=== PATIENT | female | born 1980 | race Caucasian/White ===

== ENCOUNTER → 2016-08-05 | Outpatient (CLI) | payer OTHER ==
--- NOTE | 2016-08-05 08:46 | RAD ---
Right upper quadrant abdominal ultrasound, 08/05/2016: History: Pain The gallbladder is within normal limits in size. There is no sonographic evidence of cholelithiasis. The gallbladder jean baptiste are not thickened. No bile duct dilatation is seen. The visualized portions of the liver, pancreas and right kidney are unremarkable. IMPRESSION: No significant abnormality is detected.
== END | disposition home or self-care (01) ==
LOC: US 06:44
PROVIDERS: ATTEND Surgery
DX: R10.11 Right upper quadrant pain (principal)
CPT/HCPCS: 76705

== ENCOUNTER → 2017-03-26 | Outpatient (CLI) | payer OTHER ==
[2017-03-26 11:27] LABS: BASO # 0.1 x10^3/uL (0.0-0.2); BASO % 1 % (0-3); EOS % 2 % (0-3); HEMATOCRIT 45.2 % (36.0-47.0); HEMOGLOBIN 14.9 g/dL (12.0-15.5); LYMPH # 2.6 x10^3/uL (1.0-4.8); LYMPH % 25 % (24-48); MEAN CORPUSCULAR HEMOGLOBIN 31 pg (25-35); MEAN CORPUSCULAR HGB CONC 33 g/dL (31-37); MEAN CORPUSCULAR VOLUME 94 fL (79-100); MONO % 6 % (0-9); NEUT % 67 % (31-73); PLATELET COUNT 238 x10^3/uL (140-400); RED BLOOD COUNT 4.78 x10^6/uL (3.50-5.40); RED CELL DISTRIBUTION WIDTH 13.4 % (11.5-14.5); WHITE BLOOD COUNT 10.6 x10^3/uL (4.0-11.0)
[2017-03-26 11:50] LABS: ALBUMIN 4.4 g/dL (3.4-5.0); ALBUMIN/GLOBULIN RATIO 1.3 (1.0-1.7); CALCIUM 8.9 mg/dL (8.5-10.1); CREATININE 0.7 mg/dL (0.6-1.0); GFR 94.7; POTASSIUM 3.8 mmol/L (3.5-5.1); TOTAL BILIRUBIN 0.1 mg/dL (0.2-1.0); TOTAL PROTEIN 7.9 g/dL (6.4-8.2)
== END | disposition home or self-care (01) ==
LOC: LAB 10:56
PROVIDERS: ATTEND Psychiatry & Neurology Neurology
DX: G43.001 Migraine without aura, not intractable, with status migrainosus (principal)
CPT/HCPCS: 36415; 80053; 85025; 85651; 86141

== ENCOUNTER → 2017-03-31 | Outpatient (CLI) | payer OTHER ==
[~2017-03-31] MED LIST: ALPR0.5T6 PO; DULO60CA6 PO; GADOBUTROL 7.5 MMOL/7.5 ML VIAL IV ONE; METH-38 PO; METO25TA4 PO
--- NOTE | 2017-03-31 11:55 | KCIC ---
MRI Brain with and without contrast History: Occipital headache, previous sinus surgery, worsening headaches Technique: Multiplanar, multi sequential pre and postcontrast MR imaging was performed of the brain. Contrast: 6 cc Gadavist Comparison: None Findings: There is no evidence of recent infarct or cytotoxic edema. The ventricles, sulci, and cisterns are within normal limits in size and configuration. There is no significant midline shift, intraaxial mass effect, or focal abnormal extra-axial fluid collection. There is no significant signal abnormality of the brain parenchyma. There is no nodular parenchymal or leptomeningeal enhancement. There is preservation of the major intracranial flow-voids at the skull base. The cerebellar tonsils are normal in location. There is no significant abnormality of the pineal gland or pituitary gland. There have been bilateral nasoantral windows. There is mild mucosal thickening of residual ethmoid air cells and right frontal sinus. The mastoid air cells are aerated. There is preserved marrow signal of the clivus. Impression: 1. There is no significant intracranial abnormality. 2. There have been nasoantral windows bilaterally. There is minimal mucosal thickening of residual ethmoid air cells and right frontal sinus. Electronically signed by: Romie Cerda MD (03/31/2017 11:52 AM) [facility]
== END | disposition home or self-care (01) ==
LOC: KCIC MRI 09:45
PROVIDERS: ATTEND Psychiatry & Neurology Neurology
DX: R51 Headache (principal)
CPT/HCPCS: 70553; A9585

== ENCOUNTER → 2017-10-13 | Outpatient (CLI) | payer OTHER | END | disposition home or self-care (01) | LOC: ECHO 14:20 | DX: R55 Syncope and collapse (principal); R00.2 Palpitations; G43.001 Migraine without aura, not intractable, with status migrainosus | CPT/HCPCS: 93306 ==

== ENCOUNTER 2018-09-21 14:21 | Emergency (ER) | payer OTHER ==
[~2018-09-21] VITALS: Ht 166.4 cm; Wt 78.5 kg
[~2018-09-21 14:21] MED LIST changes: -GADOBUTROL 7.5 MMOL/7.5 ML VIAL IV ONE
[2018-09-21 15:17] VITALS: BP 126/65
[2018-09-21] MEDS ORDERED: ALBUTEROL SULFATE 2.5 MG/3 ML NEBU. NEB ONE (16:00)
[2018-09-21] MEDS ORDERED: ALBU2.5V8 INH (16:53)
--- NOTE | 2018-09-21 16:54 | PHYS DOC ---
Past Medical History Past Medical History: Anxiety, Asthma, Depression, Pneumonia Past Surgical History: Tonsillectomy, Other Additional Past Surgical Histo: Oral and sinus surgeries Alcohol Use: Rarely Drug Use: None Adult General Chief Complaint Chief Complaint: ASTHMA HPI HPI Patient is a 37 year old male who presents to the emergency Department today with complaints of continued shortness of breath for a few weeks. Patient states that after having a severe case of pneumonia in 2017 she was diagnosed with asthma. She saw her primary care doctor last week and was prescribed a new asthma control inhaler, Breo Elliptra. She reports no improvement in her symptoms since starting this medication. She describes the discomfort of breathing is tightness in her chest. She denies feeling wheezing at this time. She denies any fever, nasal congestion, nausea, vomiting, diarrhea, or abdominal pain. Review of Systems Review of Systems Constitutional: Denies fever or chills [] Respiratory: Denies cough; see history of present illness Cardiovascular: No additional information not addressed in HPI [] GI: Denies abdominal pain, nausea, vomiting, or diarrhea [] Musculoskeletal: Denies back pain or joint pain [] Integument: Denies rash or skin lesions [] Neurologic: Denies headache, Current Medications Current Medications Current Medications Medications (Trade) Dose Ordered Sig/Lukasz Start Time Stop Time Status Last Admin Dose Admin Albuterol Sulfate (Ventolin Neb Soln) 2.5 mg 1X ONCE 09/21/18 16:00 09/21/18 16:01 DC 09/21/18 16:07 2.5 MG Allergies Allergies Allergies Coded Allergies Type Severity Reaction Last Updated Verified meperidine Allergy Intermediate 03/31/17 Yes Physical Exam Physical Exam Constitutional: Well developed, well nourished, no acute distress, non-toxic appearance. [] HENT: Normocephalic, atraumatic, bilateral external ears normal, nose normal. [] Eyes: conjunctiva normal, no discharge. [] Neck: Normal range of motion, no stridor. [] Cardiovascular:Heart rate regular rhythm, no murmur [] Lungs & Thorax: Bilateral breath sounds clear to auscultation, diminished in bases bilat [] Skin: Warm, dry, no erythema, no rash. [] Extremities: No cyanosis, no clubbing, no edema. [] Neurologic: Alert and oriented X 3, no focal deficits noted. [] Psychologic: Affect normal, judgement normal, mood normal. [] Current Patient Data Vital Signs Vital Signs Date Time Temp Pulse Resp B/P (MAP) Pulse Ox O2 Delivery O2 Flow Rate FiO2 09/21/18 16:09 98 Room Air 09/21/18 15:17 98.1 98 18 126/65 (85) 98.1 EKG EKG [] Radiology/Procedures Radiology/Procedures []Patient was given albuterol breathing treatment in the emergency department, she reported feeling better after the breathing treatment, lungs sounds are clear in all rodriguez Course & Med Decision Making Course & Med Decision Making Pertinent Labs and Imaging studies reviewed. (See chart for details) dx: Asthma Patient was prescribed a Pro Air inhaler and encouraged to follow up with pulmonology as she has scheduled for next week. Return to the ER symptoms worsen. Patient verbalized an understanding of home care, medications, follow-up, and return to ED instructions and was in agreement with the plan of care. [] Dragon Disclaimer Dragon Disclaimer This electronic medical record was generated, in whole or in part, using a voice recognition dictation system. Departure Departure Impression: Primary Impression: Asthma Disposition: 01 HOME, SELF-CARE Condition: STABLE Referrals: LESLIE DEMPSEY (PCP) Patient Instructions: Asthma, Adult, [id number] Additional Instructions: Fill prescription(s) and use as directed. Avoid airway triggers such as smoke, fragrance, dust, and pollen. Follow-up with pulmonology as scheduled, return to the ER symptoms worsen. Scripts Albuterol Sulfate (PROAIR HFA INHALER) 8.5 Gm Hfa.aer.ad 2 PUFF INH PRN Q6HRS PRN for SHORTNESS OF BREATH for 30 Days, #1 INHALER 0 Refills Prov: JENI LUCAS LUMP RECEIVER 09/21/18 Problem Qualifiers Primary Impression: Asthma Asthma severity: mild Asthma persistence: unspecified Asthma complication type: unspecified Qualified Codes: J45.909 - Unspecified asthma, uncomplicated JENI LUCAS LUMP RECEIVER Sep 21, 2018 16:54
== END 2018-09-21 17:15 | disposition home or self-care (01) ==
LOC: ER 14:21
DX: J45.909 Unspecified asthma, uncomplicated (principal); R07.89 Other chest pain; Z90.89 Acquired absence of other organs; Z88.1 Allergy status to other antibiotic agents; Z98.890 Other specified postprocedural states
CPT/HCPCS: 94640; 99283; J7613

== ENCOUNTER → 2018-09-30 | Outpatient (CLI) | payer OTHER ==
[2018-09-21 15:17] VITALS: BP 126/65
[~2018-09-30] MED LIST changes: +ALBU2.5V8 INH
--- NOTE | 2018-09-30 11:38 | RAD ---
Chest radiograph 09/30/2018 11:22 AM INDICATION: Left-sided chest pain, asthma COMPARISON: None available TECHNIQUE: Frontal and lateral views of the chest are provided. FINDINGS: The cardiomediastinal silhouette is within normal limits. There are no pleural effusions. There is no pulmonary vascular congestion. There is no pneumothorax. The lungs are clear. No significant osseous abnormality is identified. IMPRESSION: No acute cardiopulmonary process. Electronically signed by: Alayna Justin MD (09/30/2018 11:35 AM) [facility]
== END | disposition home or self-care (01) ==
LOC: RAD 11:09
PROVIDERS: ATTEND Internal Medicine Critical Care Medicine
DX: J45.909 Unspecified asthma, uncomplicated (principal)
CPT/HCPCS: 71046

== ENCOUNTER → 2018-12-18 | Outpatient (CLI) | payer OTHER ==
[~2018-12-18] MED LIST changes: +IOHEXOL 240 MG/ML 50ML VIAL. PO ONE; +IOHEXOL 300 MG/ML 100ML VIAL. IV ONE; +MONT10TA49 PO; +TRAZ-118 PO
--- NOTE | 2018-12-18 13:02 | RAD ---
CT of the abdomen and pelvis with contrast, 12/18/2018: HISTORY: Lower abdominal pain, nausea, rectal bleeding Multidetector CT imaging was performed following oral and IV administration of contrast. No hepatic abnormality is seen. The gallbladder is unremarkable. The pancreas shows no abnormality. The spleen is of normal size. No renal or adrenal abnormality is detected. The abdominal aorta is unremarkable. No abdominal or pelvic adenopathy is seen. The uterus is somewhat retroverted. There is a trace amount of free fluid in the pelvis. The bowel loops are not dilated. The cecum is low-lying in the right pelvis. A portion of the appendix is visualized and it is unremarkable. No free air is present in the abdomen or pelvis. IMPRESSION: 1. Trace amount of free fluid in the pelvis. This amount of fluid can be on a physiologic basis. 2. Otherwise no acute abdominal or pelvic abnormality is detected. PQRS Compliance Statement: One or more of the following individualized dose reduction techniques were utilized for this examination: 1. Automated exposure control 2. Adjustment of the mA and/or kV according to patient size 3. Use of iterative reconstruction technique Electronically signed by: Gene Scherer MD (12/18/2018 1:00 PM) [facility]
== END | disposition home or self-care (01) ==
LOC: CT 08:29
PROVIDERS: ATTEND Internal Medicine Gastroenterology
DX: N85.4 Malposition of uterus (principal); K62.5 Hemorrhage of anus and rectum
CPT/HCPCS: 74177; Q9966; Q9967

== ENCOUNTER → 2018-12-21 | Day surgery (SDC) | payer OTHER ==
[~2018-12-21] MED LIST changes: -IOHEXOL 240 MG/ML 50ML VIAL. PO ONE; -IOHEXOL 300 MG/ML 100ML VIAL. IV ONE; +IV RINGERS,LACTATED 1000ML 1,000 ML IV SCH; +LIDOCAINE 1% PF 2 ML VIAL. ID PRN; +LIDOCAINE 2% PF 5 ML VIAL. ONE; +MIDAZOLAM HCL/PF 2 MG/2 ML VIAL. IV PRN; +PROPOFOL 40 ML IV ONE; +fentaNYL PF VIAL 100 MCG/2 ML VIAL IV PRN
[2018-12-21 12:27] LABS: U PREG PATIENT NEGATIVE (NEG)
--- NOTE | 2018-12-21 13:20 | PDOC4 ---
PROCEDURE Procedure EGD/colonoscopy with biopsies Indication: upper and lower abdominal pain, rectal bleeding. Meds: per anesthesia Findings: E--less than grade A esophagitis at 40cm. G--Some retained bilious fluid, moderate. Otherwise normal. D--Normal to second portion. EBONY--Normal --Colonoscope advanced to terminal ileum. Mucosa normal throughout. No tics, masses, polyps, etc. Random biopsies from cecum/ascending and rectum to r/o occult inflammation. --Small internal hemorrhoids on retroflex. Bria. well. IMP: Endoscopically mild esophagitis; could contribute to some of her complaints. Retained gastric fluid; emptying issue? Internal hemorrhoids; likely account for the bleeding. Biopsies pending re: other cause. REC: Resume meds and diet as before. Await biopsies. Consider re-starting PPI. If refractory to PPI, consider GES. F/u in 2 weeks. HETAL BARBOSA MD Dec 21, 2018 13:20
[2018-12-21 13:43] VITALS: BP 113/58
--- NOTE | 2018-12-22 16:06 | PATHOLOGY ---
[facility] Accession Number: [id number] . 01 Material submitted: . PART A: colon - RANDOM BIOPSY CECUM AND ASCENDING COLON. Modifiers: ascending PART B: rectum - RECTAL BIOPSY . 01 Clinical history: . Pre-OP DX: GERD, abdominal pain, constipation, rectal bleeding Post-OP DX: See Dr. sierra . 02 Diagnosis: A. Colon, cecum and ascending, random biopsies: - Colonic mucosa with no significant histopathologic diagnosis. . B. Colon, rectum, biopsy: - Colonic mucosa with no significant histopathologic diagnosis. (SKM:yordan; 12/22/2018) QMS/12/22/2018 . 02 Electronically signed: . Prosper Bhagat MD, Pathologist NPI- [id number] . 01 Gross description: . A. Received in formalin labeled "Rowe, Guerline, random BX cecum and ascending colon," are multiple segments of mehta soft tissue measuring 1.3 x 0.6 x 0.1 cm in aggregate dimensions. The specimen is filtered and entirely submitted in cassette A1. . B. Received in formalin labeled "Rowe, Guerline, rectal BX," are 5 segments of mehta soft tissue measuring 1.5 x 0.8 x 0.3 cm in aggregate dimensions and ranging from 0.2 to 0.7 cm in maximum dimension. The specimen is submitted entirely in cassette B1. (TSD; 12/21/2018) TOB/TOB . 02 Pathologist provided ICD-10: K21.9, R10.9, K59.00, K62.5 . 02 CPT . 018395, [id number] Specimen Comment: A courtesy copy of this report has been sent to Specimen Comment: [phone], . Specimen Comment: Report sent to / DR DEMPSEY Performed at: [address] [facility] [address], [place] [id number] MD Estiven King MD Phone: [phone] Performed at: 02 [facility] [place] [address] [place], [place] [id number] MD Armen Llamas MD Phone: [phone]
== END | disposition home or self-care (01) ==
LOC: SURG 11:53
PROVIDERS: ATTEND Internal Medicine Gastroenterology
DX: K20.9 Esophagitis, unspecified (principal); K64.8 Other hemorrhoids; K62.5 Hemorrhage of anus and rectum
CPT/HCPCS: 43235; 45380; 81025; J2001; J2704

== ENCOUNTER → 2019-08-16 | Outpatient (CLI) | payer OTHER ==
[2018-12-21 13:43] VITALS: BP 113/58
[~2019-08-16] MED LIST changes: -IV RINGERS,LACTATED 1000ML 1,000 ML IV SCH; -LIDOCAINE 1% PF 2 ML VIAL. ID PRN; -LIDOCAINE 2% PF 5 ML VIAL. ONE; -MIDAZOLAM HCL/PF 2 MG/2 ML VIAL. IV PRN; -PROPOFOL 40 ML IV ONE; -fentaNYL PF VIAL 100 MCG/2 ML VIAL IV PRN
[2019-08-16 12:30] LABS: HEMATOCRIT 43.4 % (36.0-47.0); HEMOGLOBIN 14.4 g/dL (12.0-15.5); RED BLOOD COUNT 4.92 x10^6/uL (3.50-5.40); RED CELL DISTRIBUTION WIDTH 13.6 % (11.5-14.5); WHITE BLOOD COUNT 5.2 x10^3/uL (4.0-11.0)
[2019-08-16 12:49] LABS: ALBUMIN 4.1 g/dL (3.4-5.0); ALBUMIN/GLOBULIN RATIO 1.1 (1.0-1.7); CREATININE 0.7 mg/dL (0.6-1.0); GFR 93.6; POTASSIUM 3.7 mmol/L (3.5-5.1); TOTAL BILIRUBIN 0.2 mg/dL (0.2-1.0)
[2019-08-16 12:58] LABS: FREE T4 0.91 ng/dL (0.76-1.46); THYROID STIM HORMONE (TSH) 1.747 uIU/mL (0.358-3.74)
== END | disposition home or self-care (01) ==
LOC: LAB 11:39
PROVIDERS: ATTEND Nurse Practitioner Gerontology
DX: Z01.419 Encounter for gynecological examination (general) (routine) without abnormal findings (principal); Z79.899 Other long term (current) drug therapy
CPT/HCPCS: 36415; 80053; 84439; 84443; 85027